=== PATIENT | male | born 1950 | race Caucasian/White ===

== ENCOUNTER 2016-12-26 01:42 | Inpatient (IN) | payer OTHER, MEDICARE ==
[~2016-12-26] VITALS: Ht 177.8 cm; Wt 111.1 kg
[~2016-12-26 01:42] MED LIST: GLUCOPHAGE1000 M1 PO; HYDROXYCHLOROQ200 M2 PO; LEVOTHYROXINE100 MC1 PO; LISINOPRIL5 M1 PO
[2016-12-26] MEDS ORDERED: OXYCODONE HCL10 M2 PO (10:40)
--- NOTE | 2016-12-26 12:49 | Operative Report ---
Operative/Inv Procedure Report Surgery Date: 12/26/16 Name of Procedure: Left total hip arthroplasty left total hip arthroplasty Pre-Operative Diagnosis: Primary left hip osteoarthritis Post-Operative Diagnosis: Same with final pathology pending Estimated Blood Loss: 150 Surgeon/Social Worker Clinical: ARLIN BENTON,Jeet FLEMING Anesthesia: general endotracheal tube Implants: [place] secure fit size 7 femoral stem with a 127 neck angle 54 acetabulum 36+0 Biolox femoral head Drains: None Specimens: Femoral head and acetabular reamings Microbiology: Urine Complications: None Condition: Stable Operative Indication: Patient is a 66-year-old man who has had fairly progressive and acute onset of left hip pain. His evaluation revealed severe degenerative changes. He experienced short-term relief with normal conservative measures. He wished to proceed with total hip arthroplasty after risks, benefits and expectations of surgical and further nonsurgical options were discussed which included but not limited to persistent hip pain, need for subsequent surgery, infection, DVT, injury to blood vessel or nerve, anesthesia risks, leg length discrepancy, dislocation. Operative/Procedure Note Note: Patient was brought to the operating room and transferred to the operating table. Once under appropriate anesthesia, patient was placed into a right lateral decubitus position with left side up. All bony prominences were well- padded. Axillary roll was placed. Pressure was taken off of the area of the peroneal nerve. The left lower extremity was prepped and draped in standard fashion. Preoperative IV antibiotics were given prophylactically. A standard lateral incision was made for anticipated superior approach to the hip. Incision was taken down sharply to the underlying fascia. The fascia was incised in line with the skin incision. Hip was internally rotated placing the external rotators on tension. The piriformis was identified and reflected posteriorly. The interval between the gluteus minimus tendon and superior capsule was identified and a retractor was placed in this interval. The more inferior retractor was placed as well and the posterior capsule was exposed. A central portion of the posterior capsule was incised and reflected posteriorly. Portions of the superior and inferior capsule were excised. The central portion was tagged and reflected posteriorly for later repair. Hip was dislocated. Severe end-stage degenerative changes of the acetabulum and femoral head were confirmed. Measurements were taken and then the femoral cut was made based on preoperative templating and intraoperative measurements. I then placed a retractor anterior to the acetabulum exposing the acetabulum. An inferior retractor was placed as well. Reaming started with a size 46 and progressed to a size. Wound was very deep and patient very muscular with the knee to use significant muscle relaxation in order to expose the hip. Reaming continued to a size 53 for anticipated insertion of a size 54 acetabular cup. The trial 52 was used to confirm circumferential reaming. After copious irrigation of the definitive size 54 acetabular shell was impacted in place with excellent scratch fit. 2 screws were placed in the safe zone in standard fashion. After irrigation of the acetabular shell the definitive liner to accept a 36 mm femoral head was impacted in place and the locking mechanism was confirmed. A lap sponge was used to protect the polyethylene during preparation of the femur. The left lower extremity was internally rotated to about 90 and flexed about 60. Retractors were placed and then the box osteotome was used to lateralize my insertion site. This is followed by hand reamers and power reamer for the size 7. I then broached up to a size 7 and left the [address] Using a 127 neck angle I did a closed reduction with a 36 mm +0 femoral head. Hip was reduced. It was stable in all planes. No evidence of anterior instability with simultaneous extension and external rotation. No posterior instability to 2 simultaneous internal rotation adduction and flexion to greater than 90. The leg lengths were restored. Trial closed with then removed. Copious irrigation of the femoral canal followed. The definitive size 7 secure fit femoral stem with a 127 neck angle was impacted in place with excellent scratch fit. The trunnion was dried and the size 36+0 Biolox femoral head was impacted in place and the locking mechanism was confirmed. The hip was reduced and the stability was confirmed again. The leg lengths were confirmed. Copious irrigation followed and copious irrigation followed every level of closure. The posterior capsule was repaired the piriformis was repaired this was followed by fascial repair with interrupted #1 Vicryl sutures. Subcutaneous tissues closed in 2 layers due to the depth of the wound with 2-0 Vicryl and skin was closed with henry. Appropriate dressings were applied and patient was awakened and taken the recovery room in good condition. No intraoperative complications. Blood loss was approximately 1 50 mL. Discharge Disposition: PACU
--- NOTE | 2016-12-26 15:52 | RADIOLOGY REPORT ---
EXAMINATION: XR HIP, LEFT CLINICAL INFORMATION: Status post left hip replacement. COMPARISON: None TECHNIQUE: AP portable of the left hip. FINDINGS: Status post left total hip replacement. Orthopedic components in position. No dislocation. Air in the soft tissues related to recent surgery. Surgical skin clips lateral side of the hip. IMPRESSION: Status post left hip replacement.
[2016-12-26 18:00] VITALS: BP 120/62
[2016-12-26 20:30] VITALS: BP 134/76
[2016-12-26 22:37] VITALS: BP 134/68
--- NOTE | 2016-12-26 23:59 | PN- Orthopedic ---
Subjective Subjective: pain well controlled, no cp/sob/n/v, chris diet, +uo Objective Vital Signs and I&Os Vital Signs Date Time Temp Pulse Resp B/P B/P Pulse O2 O2 Flow FiO2 Mean Ox Delivery Rate 12/267 98.7 73 20 134/68 100 Nasal 3.0L Cannula 12/26 2030 98.8 80 20 134/76 99 Nasal 3.0L Cannula 12/26 1800 Nasal 2.0L Cannula 12/26 1800 99.0 79 20 120/62 98 Nasal 2.0L Cannula Physical Exam: gen: nad card: s1s2 rrr pulm: ctab abd: soft nt ext: left hip dsg cdi, ttp at incision, calves soft nt bl, palp pedal pulses, lle +dorsi/plantar flexion Assessment/Plan Assessment/Plan A/P POD0 sp Let THR, stable. coum per inr prn pain meds oob, wbat, pt dc planning ada diet, home meds Core Measures/Miscellaneous Venous Thromboembolism VTE Risk Factors: Age > 40, Surgery VTE Contraindications: No Contraindications VTE Diagnosis: No Beta Sherley Is Beta Sherley a Home Med? No Antibiotics Is Patient on Antibiotics? Yes
[2016-12-27 00:24] VITALS: BP 122/58
[2016-12-27 04:29] VITALS: BP 118/70
[2016-12-27 08:11] LABS: ABSOLUTE BASOPHIL COUNT 0 /CUMM (0.0-0.2); ABSOLUTE EOSINOPHIL COUNT 0.1 /CUMM (0.0-0.7); ABSOLUTE GRANULOCYTE CT 5.9 /CUMM (1.4-6.5); ABSOLUTE LYMPH COUNT 1.4 /CUMM (1.2-3.4); ABSOLUTE MONOCYTE COUNT 0.7 /CUMM (0.10-0.60); BASOPHIL % 0.4 % (0.0-2.0); EOSINOPHIL % 0.7 % (0-5); GRANULOCYTE % 72.2 % (42.2-75.2); HEMATOCRIT 32.5 % (42-52); MEAN CORPUSCULAR HGB 30.4 PG (27.0-31.0); MEAN CORPUSCULAR HGB CONC 34.3 G/DL (33.0-37.0); MEAN CORPUSCULAR VOLUME 88.8 FL (80.0-94.0); MEAN PLATELET VOLUME 9.5 FL (7.4-10.4); PLATELET COUNT 158 /CUMM (130-400); PT 12.4 SEC (9.4-12.5); RBC DISTRIBUTION WIDTH 13.8 % (11.5-14.5); RED BLOOD CELL CT 3.66 /CUMM (4.70-6.10); WHITE BLOOD CELL COUNT 8.1 /CUMM (4.8-10.8)
--- NOTE | 2016-12-27 08:20 | PN- Orthopedic ---
See Addendum Subjective Subjective: She was seen this morning postoperatively day #1. He reports that his pain is under adequate control aside for some spasmodic pain is otherwise comfortable. He has no complaints the current time denies any chest pain or difficulty breathing. Objective Vital Signs and I&Os Vital Signs Date Time Temp Pulse Resp B/P B/P Pulse O2 O2 Flow FiO2 Mean Ox Delivery Rate 12/27 0429 98.2 69 20 118/70 98 Nasal Cannula 12/27 0024 98.0 73 20 122/58 99 Nasal 3.0L Cannula 12/27 0000 Nasal 2.0L Cannula 12/26 2237 98.7 73 20 134/68 100 Nasal 3.0L Cannula 12/26 2030 98.8 80 20 134/76 99 Nasal 3.0L Cannula 12/26 1800 Nasal 2.0L Cannula 12/26 1800 99.0 79 20 120/62 98 Nasal 2.0L Cannula Intake & Output 12/27 1600 / 0800 / 0000 12/26 1600 12/26 0800 12/26 0000 Intake Total 900 500 Output Total 1050 300 Balance -150 200 Intake, IV 600 300 Intake, Oral 300 200 Number 0 Bowel Movements Output, Urine 1050 300 Patient 245 lb Weight Weight Reported by Patient Measurement Method Physical Exam: Gen.: Alert and in no obvious distress Skin: Warm and dry Extremities: Bilateral lower extremities are warm without calf tenderness or significant edema. Gross motor and sensory are intact. Respiratory congestion is clean, dry, and intact. Assessment/Plan Assessment/Plan Assessment: 66 on male status post left total hip arthroplasty postoperative day #1. The patient is progressing as expected and his pain is under adequate control. Plan: DC West catheter and Hep-Lock IV fluids Monitor for post West removal void Follow-up morning laboratory studies and reduce Coumadin for an INR between 2 and 3 Add Valium PRN to current pain regiment Out of bed with physical therapy GI and DVT prophylaxis First surgical dressing change tomorrow Core Measures/Miscellaneous Venous Thromboembolism VTE Risk Factors: Age > 40, Surgery VTE Contraindications: No Contraindications VTE Diagnosis: No Beta Sherley Is Beta Sherley a Home Med? No Antibiotics Is Patient on Antibiotics? No
[2016-12-27 12:42] VITALS: BP 110/70
[2016-12-27 15:24] VITALS: BP 120/70
[2016-12-27 22:20] VITALS: BP 110/60
[2016-12-28 06:30] VITALS: BP 122/70
--- NOTE | 2016-12-28 08:01 | PN- Orthopedic ---
See Addendum Subjective Subjective: Patient reporting no acute overnight events but states that he is currently having a lot of pain around incision. He denies chest pain, shortness of breath , and difficulty breathing. He denies nausea and vomitting. He has had a difficult time ambulating due to pain. Objective Vital Signs and I&Os Vital Signs Date Time Temp Pulse Resp B/P B/P Pulse O2 O2 Flow FiO2 Mean Ox Delivery Rate 12/28 0630 99.3 75 20 122/70 93 Room Air 12/27 2220 99.3 67 20 110/60 95 /02 1524 98.0 100 20 120/70 97 12/27 1242 98.0 100 20 110/70 97 12/27 0800 Nasal 2.0L Cannula Intake & Output 12/28 0812/28 0000 12/27 1600 12/27 0800 12/27 0000 12/26 1600 Intake Total 500 840 900 500 Output Total 100 1050 300 Balance 500 740 -150 200 Intake, IV 300 600 300 Intake, Oral 500 540 300 200 Number 0 Bowel Movements Output, Urine 100 1050 300 Patient 245 lb Weight Weight Reported by Patient Measurement Method Physical Exam: General: Alert and oriented x3, no acute distress Cardiac: RRR, s1s2 Pulm: CTA bilaterally, normal respiratory effort, on room air Abdomen: Normoactive bowel sounds, softly distended, patient reporting no flatus Extremeties: Moves all extremities, distal sensation intact, palpable dp pulses , bilateral calves soft and non-tender Surgical site: Right thigh, dressing intact, skin edges well approximated, henry intact, xavier-incisional brusing noted, thigh compartment soft, tightness /spasm noted around incision. Assessment/Plan Assessment/Plan This is a 66 year old male, POD 2,s/p left gilda -Valium now for spasm -Continue current pain regimen -Consider heat to xavier-incisional area, if no improvement can return to ice -OOB -Posterior hip precautions -F/U am labs -Coumadin daily per INR, target INR 2-3 -Dispo planning, STR -Will d/w Dr. Hope Core Measures/Miscellaneous Venous Thromboembolism VTE Risk Factors: Age > 40, Surgery VTE Contraindications: No Contraindications VTE Diagnosis: No Beta Sherley Is Beta Sherley a Home Med? No Antibiotics Is Patient on Antibiotics? No
[2016-12-28 08:36] LABS: PT 13.4 SEC (9.4-12.5)
[2016-12-28 15:21] VITALS: BP 130/70
[2016-12-28 22:15] VITALS: BP 120/60
[2016-12-29 07:20] VITALS: BP 110/64
--- NOTE | 2016-12-29 08:20 | PN- Orthopedic ---
Subjective Subjective: Patient rested well overnight. Feels better with valium and heat therapy to surgical site. Has been oob and ambulated with pt. Denies chest pain, shortness of breath and difficulty breathing. Denies nausea and vomitting. Voiding without difficulty. Needs BM today prior to discharge. Objective Vital Signs and I&Os Vital Signs Date Time Temp Pulse Resp B/P B/P Pulse O2 O2 Flow FiO2 Mean Ox Delivery Rate 12/29 0720 98.4 70 20 110/64 97 Room Air 12/28 2215 97.6 94 20 120/60 93 Room Air 12/28 1521 99.4 91 20 130/70 96 12/28 1048 Room Air 2.0L 12/28 1043 Room Air 2.0L 12/28 0938 Room Air 2.0L 12/28 0922 75 122/70 Intake & Output 12/29 1600 12/29 0800 12/29 0000 12/28 1600 12/28 0800 12/28 0000 Intake Total 200 1100 500 Output Total 200 Balance 200 900 500 Intake, Oral 200 1100 500 Number 0 Bowel Movements Output, Urine 200 Physical Exam: General: Alert and oriented x3, no acute distress Cardiac: RRR, s1s2 Pulmonary: CTA bilaterally Abdomen: Non-tender, non-distended Extremities: Moves all extremities, distal sensation intact. Motor 5/5 in plantar and dorsi flexion. Skin warm and well perfused. DP pulses palpable. Bilateral calves soft and non-tender Surgical site: Left hip, dressing dry, thigh compartment soft, xavier-incisional tightness, no redness or induration Assessment/Plan Assessment/Plan This is a 66 year old male, POD 3, s/p L thr -Continue current pain regimen, give valium for spasms -Continue OOB, ambulate, wbat, posterior hip precautions -Continue daily coumadin for DVT ppx, f/u daily INR, target INR 2-3 -Bowel regimen to be given today for no bm -Dispo planning, STR today -Will d/w Dr. Hope Core Measures/Miscellaneous Venous Thromboembolism VTE Risk Factors: Age > 40, Surgery VTE Contraindications: No Contraindications VTE Diagnosis: No Beta Sherley Is Beta Sherley a Home Med? No Antibiotics Is Patient on Antibiotics? No
[2016-12-29 08:22] LABS: PT 13.6 SEC (9.4-12.5)
[2016-12-29] MEDS ORDERED: PERCOCET 5-3251 EACH PO (08:28)
[2016-12-29] MEDS ORDERED: COUMADIN5 M2 PO (08:28)
[2016-12-29] MEDS ORDERED: VALIUM5 M2 PO (08:30)
[2016-12-29] MEDS ORDERED: MS CONTIN15 M2 PO (08:31)
--- NOTE | 2016-12-29 08:37 | Patient Discharge Instructions ---
Discharge Instructions General Discharge Information You were seen/treated for: LEFT HIP PAIN RELATED TO OSTEOARTHRITIS You had these procedures: LEFT TOTAL HIP REPLACEMENT Watch for these problems: Increasing pain despite the use of pain medications. Increasing redness, warmth , swelling. Drainage of any type from incision. Inability to bear weight on left leg. Fever greater than 101.5. Do not soak the wound: Yes No bath, but you may shower: Yes Other wound care: Keep wound clean and dry. Daily dry dressing changes Special Instructions: Coumadin: Dosed per INR, target INR 2-3. Dose subject to change daily based on bloodwork. Please await specific instructions regarding dose prior to taking. If you have not been given instructions prior to taking, contact Dr. Hope' office. Avoid crossing left leg over right leg. Avoid bending greater than 90 degrees at waist. Do not internally rotate left leg. Diet Continue normal diet: Yes Recommended Diet: Regular Activity Full Activity/No Limits: No Activity Self Limited: Yes Pounds, do NOT lift more than: 10 Activity Limited to: Weight bear as tolerated Other activity limits: No bending greater than 90 degrees at waist. Do not cross left leg over right. Do not internally rotate left leg. Abduction pillow when in bed. Acute Coronary Syndrome Inclusion Criteria At DC or during hospital stay patient has or had the following: ACS DIAGNOSIS No Discharge Core Measures Meds if any: Prescribed or Continued at Discharge Meds if any: NOT Prescribed or Continued at Discharge Congestive Heart Failure Inclusion Criteria At DC or during hospital stay patient has or had the following: CHF DIAGNOSIS No Discharge Core Measures Meds if any: Prescribed or Continued at Discharge Meds if any: NOT Prescribed or Continued at Discharge Cerebrovascular accident Inclusion Criteria At DC or during hospital stay patient has or had the following: CVA/TIA Diagnosis No Discharge Core Measures Meds if any: Prescribed or Continued at Discharge Meds if any: NOT Prescribed or Continued at Discharge Venous thromboembolism Inclusion Criteria VTE Diagnosis No VTE Type NONE VTE Confirmed by (Test) NONE Discharge Core Measures - Per Current guidelines, there needs to be overlap - treatment for the first 5 days of Warfarin therapy. - If discharged on Warfarin prior to 5 days of - overlap therapy, the patient will need to be - assessed for post discharge needs including - *Post discharge parental anticoagulation - *Warfarin and/or parental anticoagulation education - *Follow up date to check INR post discharge At least 5 days overlap therapy as Inpatient No Meds if any: Prescribed or Continued at Discharge Note: Overlap Therapy is Warfarin and Anticoagulant Meds if any: NOT Prescribed or Continued at Discharge
--- NOTE | 2016-12-29 08:45 | Surgical Discharge Summary ---
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 Home What is Your Primary Language? Thai Review of Systems: See H&P Hospital Course Course Attending Physician: ARLIN BENTON,BERNADETTE Primary Care Physician: MARTINE ZAMARRIPA MD Hospital Course: Albin was admitted to the hospital on 12/26/2016 for an elective left total hip replacement. He tolerated the procedure well and was transferred to a general surgical floor. There his diet was advanced and tolerated and he voided spontaneously and had a bowel movement. His vital signs were stable and within normal limits and his neurovascular status remained intact. His pain was controlled with po pain medication. He was evaluated and treated by physical therapy and deemed appropriate for discharge. Allergies: Coded Allergies: No Known Allergies (12/23/16) Disposition Summary Disposition Principal Diagnosis: Left hip unilateral primary osteoarthritis Additional Diagnosis: none Discharge Disposition: SNF Discharge Instructions General Discharge Information Code Status: Full Code Patient's Diet: Regular, advance as tolerated Patient's Activity: WBAT, posterior hip precautions: No flexion or internal rotation of left hip, no bending greater than 90 degrees at waist Follow-Up Instructions/Appts: Follow up with Dr. Hope in two weeks from date of surgery. Please call his office to either arrange or confirm that appointment. Medications at Discharge Discharge Medications: Stop taking the following medications: Oxycodone HCl (Oxycodone HCl) 10 MG TABLET ORAL EVERY 4-6 HRS as needed for PAIN Continue taking these medications: Lisinopril (Lisinopril) 5 MG TABLET 1 Tablet ORAL DAILY Hydroxychloroquine Sulfate (Hydroxychloroquine Sulfate) 200 MG TABLET 1 Tablet ORAL TWICE DAILY Metformin HCl (Glucophage) 1,000 MG TABLET 1 Tablet ORAL TWICE DAILY Levothyroxine Sodium (Levothyroxine Sodium) 100 MCG TABLET 1 Tablet ORAL DAILY Start taking the following new medications: Oxycodone HCl/Acetaminophen (Percocet 5-325 MG Tablet) 5 MG-325 MG TABLET 1-2 Tablet ORAL EVERY 4-6 HOURS as needed for PAIN Qty = 36 No Refills Warfarin Sodium (Coumadin) 5 MG TABLET 1 Tablet ORAL DAILY Qty = 30 No Refills Diazepam (Valium) 5 MG TABLET 1 Tablet ORAL THREE TIMES A DAY NEEDED Qty = 30 No Refills Morphine Sulfate (Ms Contin) 15 MG TABLET.ER 1 Tablet ORAL 2 x Daily as needed as needed for PAIN Qty = 6 No Refills
[2016-12-29] MEDS ORDERED: RW (08:48)
[2016-12-29 14:35] VITALS: BP 120/70
[2016-12-29 16:55] VITALS: BP 120/70
== END 2016-12-29 19:30 | DRG 470 ==
LOC: 2NA 01:42 → SDA 01:42 → ENRESERV 16:58 → 2NA 18:05 → ENPENDDIS 12-29 08:52 → 2NA 12-29 19:30
PROVIDERS: Physician Assistant Surgical; ADMIT Orthopaedic Surgery
PROC: 0SRB04A Replacement of Left Hip Joint with Ceramic on Polyethylene Synthetic Substitute, Uncemented, Open Approach (ICD-10-PCS; principal; 2016-12-26)
DX: M16.12 Unilateral primary osteoarthritis, left hip (principal); E66.9 Obesity, unspecified; M06.9 Rheumatoid arthritis, unspecified; Z68.35 Body mass index [BMI] 35.0-35.9, adult; I10 Essential (primary) hypertension; E03.9 Hypothyroidism, unspecified; G47.33 Obstructive sleep apnea (adult) (pediatric); Z87.891 Personal history of nicotine dependence; E11.9 Type 2 diabetes mellitus without complications; E78.5 Hyperlipidemia, unspecified; Z79.84 Long term (current) use of oral hypoglycemic drugs
CPT/HCPCS: 2NASP; 73501; 82436; 87086; 88304; 97116-GO; 97161-GP; 97165-GO; 97530-GO; C9399; J0131; J2405; J2795; J3370; J7040